=== PATIENT | male | born 2000 | race Asian ===

== ENCOUNTER 2020-02-21 11:40 | Emergency (ER) | payer MEDICAID, OTHER ==
[~2020-02-21] VITALS: Ht 157.5 cm; Wt 61.4 kg
[~2020-02-21 11:40] MED LIST: NOCURR
[2020-02-21] MEDS ORDERED: DiphenhydrAMINE HCL 25 MG CAPSULE PO ONE (13:00)
[2020-02-21] MEDS ORDERED: DEXAMETHASONE 4 MG TABLET PO ONE (13:00)
[2020-02-21 13:20] VITALS: BP 124/84
== END 2020-02-21 13:32 | disposition home or self-care (01) ==
LOC: EMS 11:40
DX: L50.9 Urticaria, unspecified (principal)
CPT/HCPCS: 99283; J8540

== ENCOUNTER 2020-05-27 10:49 | Emergency (ER) | payer BC, MEDICAID ==
[~2020-05-27] VITALS: Ht 157.5 cm; Wt 59.1 kg
[2020-05-27 11:01] VITALS: BP 128/74
[2020-05-27] MEDS ORDERED: ACETAMINOPHEN 325 MG TABLET PO ONE (11:30)
== END 2020-05-27 12:24 | disposition home or self-care (01) ==
LOC: EMS 10:55
DX: B34.9 Viral infection, unspecified (principal)
CPT/HCPCS: Z7502; Z7610